=== PATIENT | female | born 1985 | race Caucasian/White ===

== ENCOUNTER 2019-03-10 22:22 | Emergency (ER) | payer MEDICARE, MEDICAID ==
[~2019-03-10] VITALS: Ht 154.9 cm; Wt 79.5 kg
[2019-03-10 22:26] VITALS: BP 131/75
--- NOTE | 2019-03-10 22:31 | NUR ---
TO ED 12. REPORT TO DAWIT BRAND.
--- NOTE | 2019-03-10 22:46 | NUR ---
34 Y/O F BIB BROTHER WITH C/O AUDITORY HALLUCINATIONS. PT WOULD NOT DISCLOSE WHAT VOICES WERE SAYING. DENIES SI/HI. PT STATED SHE FEELS SAFE. PER PT AUDITORY HALLUCINATIONS ARE ALWAYS PRESENT BUT HAS WORSENED IN THE LAST 2 WEEKS. PT HAS HX OF BIPOLAR, SCHIZOPHRENIA, AND DEPRESSION. WITHIN THE LAST 2 WEEKS PSYCHIATRIC MEDICATION DOSAGES WERE LOWERED, THIS IS WHEN SYMPTOMS HAVE INCREASED. ERMD NOTIFED OF PT STATUS. FAMILY AT BEDSIDE. WILL CONTINUE TO MONITOR.
[2019-03-10 23:30] LABS: BASOPHILS # (AUTO) 0.1 K/uL (0.00-0.22); BASOPHILS % (AUTO) 0.6 % (0.0-2.0); EOSINOPHILS # (AUTO) 0.1 K/uL (0-0.4); EOSINOPHILS % (AUTO) 1.3 % (0.0-4.0); HEMATOCRIT 36.7 % (36-48); HEMOGLOBIN 11.9 g/dL (12.0-16.0); LYMPHOCYTES # (AUTO) 2.8 K/uL (2.5-16.5); LYMPHOCYTES % (AUTO) 25.9 % (20.5-51.1); MEAN CORPUSCULAR HEMOGLOBIN 24 pg (27-31); MEAN CORPUSCULAR HGB CONC 32 g/dL (33-37); MEAN CORPUSCULAR VOLUME 74.2 fL (80-94); MONOCYTES # (AUTO) 0.5 K/uL (0.8-1.0); MONOCYTES % (AUTO) 4.7 % (1.7-9.3); NEUTROPHILS # (AUTO) 7.4 K/uL (1.8-7.7); NEUTROPHILS % (AUTO) 67.5 % (42.2-75.2); PLATELET COUNT (AUTO) 344 K/uL (140-450); RED BLOOD CELL COUNT(AUTO) 4.94 MIL/uL (4.20-5.40); RED CELL DISTRIBUTION WIDTH 17.1 % (11.6-13.7); WHITE BLOOD COUNT (AUTO) 10.9 K/uL (4.8-10.8)
[2019-03-10 23:43] LABS: ANION GAP 15.6 (8-16); CARBON DIOXIDE 26.3 mmol/L (21-32); CHLORIDE 102 mmol/L (98-107); CREATININE 0.7 mg/dL (0.6-1.3); GFR ARICAN-AMERICAN 125 mL/min (>90); GLUCOSE 102 mg/dL (74-106); POTASSIUM 3.9 mmol/L (3.5-5.1); SODIUM SERUM 140 mmol/L (136-145); UREA NITROGEN, BLOOD 8 mg/dL (7-18)
[2019-03-10 23:48] LABS: ALBUMIN 3.3 g/dL (3.4-5.0); ASPARTATE AMINOTRANSFERASE 14 U/L (15-37); TOTAL BILIRUBIN 0.2 mg/dL (0.0-1.0)
[2019-03-10 23:56] LABS: ACETAMINOPHEN < 0.5 ug/ml (10-30); SALICYLATE < 2.8 mg/dL (2.8-20.0)
[2019-03-11 00:40] LABS: APPEARANCE,URINE HAZY (CLEAR); BILIRUBIN,URINE NEGATIVE (NEGATIVE); BLOOD, URINE NEGATIVE (NEGATIVE); COLOR,URINE YELLOW (YELLOW); LEUKOCYTE ESTERASE ,URINE 2+ (NEGATIVE); NITRITE, URINE POSITIVE (NEGATIVE); UGLUCOSE NEGATIVE (NEGATIVE)
[2019-03-11 00:42] VITALS: BP 107/70
--- NOTE | 2019-03-11 00:44 | NUR ---
PT AWAKE AND ALERT. VSS. FAMILY AT BEDSIDE. WILL CONTINUE TO MONITOR.
[2019-03-11 00:46] LABS: BARBITURATE, URINE NEG. ng/ml (NEG <=200); BENZODIAZEPINE, URINE NEG. ng/mL (NEG <=200); CANNABINOID, URINE NEG. ng/mL (NEG <=50); COCAINE, URINE NEG. ng/mL (NEG <=300); OPIATE, URINE NEG. ng/mL (NEG <=2000); PHENCYCLIDINE SCREEN,URINE NEG. ng/mL (NEG <=25)
[2019-03-11 00:52] LABS: RBC,URINE 0-5 /HPF (0-5); WBC,URINE 20-60 /HPF (0-5)
[2019-03-11] MEDS ORDERED: cefTRIAXone 1,000 MG in LIDOCAINE MPF 1% - 5 mL VIAL 2.1 ML IM ONE (00:55)
--- NOTE | 2019-03-11 01:33 | NUR ---
PT REFUSED THE ROCEPHEN, LESLEY CORNEJO MADE AWARE OF STATUS
--- NOTE | 2019-03-11 03:00 | NUR ---
PATIENT ELOPED FROM FACILITY. DISCHARGE INSTRUCTIONS NOT GIVEN TO PATIENT. WRISTBAND STILL ON. DR. BALLESTEROS NOTIFIED.
== END 2019-03-11 03:00 | disposition left against medical advice (07) ==
LOC: MED 22:22
DX: R44.0 Auditory hallucinations (principal); F20.9 Schizophrenia, unspecified; F31.9 Bipolar disorder, unspecified; N39.0 Urinary tract infection, site not specified
CPT/HCPCS: 36415; 80053; 80305; 81001; 85025; 87086; 87186; 99283; G0480; G0482; 81002; J0696; J2001

== ENCOUNTER 2019-04-11 15:01 | Emergency (ER) | payer MEDICARE, MEDICAID ==
[~2019-04-11] VITALS: Ht 165.1 cm; Wt 86.2 kg
[2019-04-11 15:10] VITALS: BP 119/77
[2019-04-11 15:20] VITALS: BP 119/77
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
[2019-04-11] MEDS ORDERED: NACL 0.9% 1,000 ML IV ONE (15:23)
[2019-04-11 15:58] LABS: BASOPHILS # (AUTO) 0.1 K/uL (0.00-0.22); BASOPHILS % (AUTO) 0.4 % (0.0-2.0); EOSINOPHILS # (AUTO) 0.1 K/uL (0-0.4); EOSINOPHILS % (AUTO) 0.8 % (0.0-4.0); HEMATOCRIT 35.7 % (36-48); HEMOGLOBIN 11.4 g/dL (12.0-16.0); LYMPHOCYTES # (AUTO) 1.8 K/uL (2.5-16.5); LYMPHOCYTES % (AUTO) 10.3 % (20.5-51.1); MEAN CORPUSCULAR HEMOGLOBIN 23 pg (27-31); MEAN CORPUSCULAR HGB CONC 32 g/dL (33-37); MEAN CORPUSCULAR VOLUME 73.1 fL (80-94); MONOCYTES # (AUTO) 0.6 K/uL (0.8-1.0); MONOCYTES % (AUTO) 3.7 % (1.7-9.3); NEUTROPHILS # (AUTO) 14.5 K/uL (1.8-7.7); NEUTROPHILS % (AUTO) 84.8 % (42.2-75.2); PLATELET COUNT (AUTO) 400 K/uL (140-450); RED BLOOD CELL COUNT(AUTO) 4.88 MIL/uL (4.20-5.40); RED CELL DISTRIBUTION WIDTH 16.1 % (11.6-13.7); WHITE BLOOD COUNT (AUTO) 17.1 K/uL (4.8-10.8)
[2019-04-11 16:18] LABS: ANION GAP 16.1 (8-16); CARBON DIOXIDE 24.5 mmol/L (21-32); CHLORIDE 101 mmol/L (98-107); GFR ARICAN-AMERICAN 83 mL/min (>90); GLUCOSE 107 mg/dL (74-106); POTASSIUM 3.6 mmol/L (3.5-5.1); SODIUM SERUM 138 mmol/L (136-145); UREA NITROGEN, BLOOD 8 mg/dL (7-18)
[2019-04-11 16:37] LABS: ALBUMIN 3.7 g/dL (3.4-5.0); TOTAL BILIRUBIN 0.4 mg/dL (0.0-1.0)
[2019-04-11 16:38] LABS: ACETAMINOPHEN < 0.5 ug/ml (10-30); SALICYLATE < 2.8 mg/dL (2.8-20.0)
[2019-04-11 16:51] LABS: ASPARTATE AMINOTRANSFERASE 22 U/L (15-37)
--- NOTE | 2019-04-11 17:20 | NUR ---
[place] [employer] at bedside to evaluate patient for 5150 hold.
--- NOTE | 2019-04-11 17:26 | NUR ---
Per Officer Borges patient does not meet criteria for 5150 at this time and will not write a hold. Dr. Moran made aware.
--- NOTE | 2019-04-11 17:35 | NUR ---
PT SENT TO [facility] TO PROVIDE UA.
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
== END 2019-04-11 17:24 | disposition left against medical advice (07) ==
LOC: MED 15:01
DX: F91.9 Conduct disorder, unspecified (principal); F20.9 Schizophrenia, unspecified; Z02.89 Encounter for other administrative examinations
CPT/HCPCS: 36415; 80053; 85025; 99283; G0480; G0482